=== PATIENT | male | born 1955 | race Caucasian/White ===

== ENCOUNTER 2017-11-11 17:29 | Emergency (ER) | payer BC, OTHER ==
--- NOTE | 2017-11-11 17:48 | ED.PDOC ---
History of Present Illness - General Chief Complaint: Chest Pain/OK Stated Complaint: overheated and chest pain in left side Time Seen by Provider: 11/11/17 17:47 Source: patient Exam Limitations: no limitations - History of Present Illness Initial Comments: Brian Albert 61 y/o male stated that he got dizzy and light headed at work then felt sharp pains on his left lower rib cage which went away on arrival here at ER.Stated had watery diarrhea the last 2 days no vomiting but today stool was soft no longer watery.Exposed to grand kids that were sick with diarrhea.Has history of DMi,copd,htn. Timing/Duration: 4-6 hours Severity: moderate Improving Factors: nothing Worsening Factors: nothing Associated Symptoms: other - see hpi Allergies/Adverse Reactions: Allergies NO KNOWN ALLERGY Allergy (Unverified 11/11/17 17:42) Home Medications: Ambulatory Orders Insulin Aspart [Novolog] 100 unit SC QID PRN #0 10/11/14 Insulin NPH Isophane & Reg (Hu [Novolin 70/30 (70-30) 100 Unit/ml] 1 inj SC Review of Systems - Review of Systems Constitutional: States: no symptoms reported EENTM: States: no symptoms reported Respiratory: States: no symptoms reported Gastrointestinal/Abdominal: States: see HPI Genitourinary: States: no symptoms reported Musculoskeletal: States: no symptoms reported Skin: States: no symptoms reported Neurological: States: other - dizzy Past Medical History (General) - Patient Medical History Hx Seizures: No Hx Stroke: No Hx Dementia: No Hx Asthma: No Hx of COPD: Yes Hx Cardiac Disorders: No Hx Congestive Heart Failure: No Hx Pacemaker: No Hx Hypertension: Yes Hx Thyroid Disease: No Hx Diabetes: Yes Hx Gastroesophageal Reflux: No Hx Renal Disease: No Hx Cancer: No Hx of HIV: No Hx Hepatitis C: No Hx MRSA: No Surgical History: other - thumb ,orif-right knee,groin cyst - Vaccination History Hx Tetanus, Diphtheria Vaccination: No Hx Influenza Vaccination: Yes Hx Pneumococcal Vaccination: Yes Immunizations Up to Date: No - Social History Hx Tobacco Use: Yes Hx Chewing Tobacco Use: Yes - dips Hx Alcohol Use: Yes - occ Hx Substance Use: No Hx Substance Use Treatment: No Hx Depression: No Hx Physical Abuse: No Hx Emotional Abuse: No Family Medical History - Family History Mother Family History: Unknown Hx Family Diabetes: Yes - mom Hx Family Cancer: Yes - pancreas -dad Physical Exam - Physical Exam General Appearance: Alert, Comfortable, No apparent distress Eye Exam: bilateral normal Ears, Nose, Throat: hearing grossly normal, normal ENT inspection, normal pharynx Neck: non-tender, full range of motion, supple Respiratory: chest non-tender, lungs clear, normal breath sounds Cardiovascular/Chest: normal peripheral pulses, regular rate, rhythm, no murmur Peripheral Pulses: radial,right: 2+, radial,left: 2+ Gastrointestinal/Abdominal: normal bowel sounds, non tender, soft, no organomegaly Extremity: non-tender, no pedal edema, no calf tenderness Neurologic: no motor/sensory deficits, alert, oriented x 3, other - speech fluent Skin Exam: normal color, warm/dry Progress - Progress Progress: 11/11/17 19:21 Vital Signs - 8 hr 11/11/17 11/11/17 17:44 17:49 Temperature 97.1 F L Pulse Rate [ 96 H 87 monitor] Respiratory 18 Rate Blood Pressure 124/84 [la] O2 Sat by Pulse 97 Oximetry 11/11/17 21:18 Recommend obs in hospital but feels better wants to go home blood sugar downward trend no N/V stated can drink extra fluids at home;he will give nighttime insulin dose tonight.Denies chest pain symptoms 11/11/17 21:23 - Results/Orders Results/Orders: 11/11/17 18:00 EKG STAT Laboratory Results - last 24 hr 11/11/17 11/11/17 11/11/17 18:03 18:03 18:58 WBC 8.4 RBC 5.18 Hgb 14.7 Hct 44.2 MCV 85.4 MCH 28.3 MCHC 33.2 RDW 13.3 Plt Count 221 MPV 9.7 Absolute Neuts (auto) 6.40 Absolute Lymphs (auto) 1.10 Absolute Monos (auto) 0.70 Absolute Eos (auto) 0.10 Absolute Basos (auto) 0.00 Neutrophils % 76.5 Lymphocytes % 13.7 L Monocytes % 8.6 Eosinophils % 0.7 L Basophils % 0.5 PT 9.3 INR 0.93 PTT (SP) 22.9 D-Dimer, Quantitative 0.31 Sodium 129 L Potassium 3.8 Chloride 93 L Carbon Dioxide 19 L Anion Gap 20.8 H BUN 25 H Creatinine 1.40 H BUN/Creatinine Ratio 17.9 POC Glucose Random Glucose 588 H* Serum Osmolality 290.2 Calcium 9.3 Magnesium 2.0 Total Bilirubin 3.1 H* Direct Bilirubin 0.3 H Indirect Bilirubin 2.8 H AST 23 ALT 25 Alkaline Phosphatase 138 H Creatine Kinase 84 CK-MB (CK-2) 2.7 CK-MB (CK-2) % Not Reportable Troponin I < 0.02 B-Natriuretic Peptide 146.0 H Serum Total Protein 7.2 Albumin 3.9 Urine Color Yellow Urine Appearance Clear Urine pH 5.0 Ur Specific Mobile 1.010 Urine Protein Negative Urine Glucose (UA) 500 H Urine Ketones >=160 Urine Blood Negative Urine Nitrite Negative Urine Bilirubin Negative Urine Urobilinogen 0.2 Ur Leukocyte Esterase Negative Urine RBC 0 Urine WBC 0-1 Ur Epithelial Cells 0 Urine Bacteria 0 11/11/17 11/11/17 11/11/17 19:29 19:42 20:04 WBC RBC Hgb Hct MCV MCH MCHC RDW Plt Count MPV Absolute Neuts (auto) Absolute Lymphs (auto) Absolute Monos (auto) Absolute Eos (auto) Absolute Basos (auto) Neutrophils % Lymphocytes % Monocytes % Eosinophils % Basophils % PT INR PTT (SP) D-Dimer, Quantitative Sodium 138 Potassium 3.8 Chloride 100 L Carbon Dioxide 22 Anion Gap 19.8 H BUN 24 H Creatinine 0.56 L D BUN/Creatinine Ratio 42.9 H POC Glucose 326 H Random Glucose 400 H Serum Osmolality 276.4 Calcium 9.7 Magnesium Total Bilirubin Direct Bilirubin Indirect Bilirubin AST ALT Alkaline Phosphatase Creatine Kinase CK-MB (CK-2) CK-MB (CK-2) % Troponin I < 0.02 B-Natriuretic Peptide Serum Total Protein Albumin Urine Color Urine Appearance Urine pH Ur Specific Mobile Urine Protein Urine Glucose (UA) Urine Ketones Urine Blood Urine Nitrite Urine Bilirubin Urine Urobilinogen Ur Leukocyte Esterase Urine RBC Urine WBC Ur Epithelial Cells Urine Bacteria - EKG/XRAY/CT EKG: Sinus, no ST T wave changes Comments: HR-89 XRAY: chest - subsegmental atelectasis retrocardiac Departure - Departure Clinical Impression: Dizziness, Dehydration, moderate Diarrhea Qualifiers: Diarrhea type: unspecified type Qualified Code(s): R19.7 - Diarrhea, unspecified Diabetes Qualifiers: Diabetes mellitus type: type 1 Diabetes mellitus complication status: with unspecified complications Qualified Code(s): E10.8 - Type 1 diabetes mellitus with unspecified complications Chest pain, unspecified Qualifiers: Chest pain type: unspecified Qualified Code(s): R07.9 - Chest pain, unspecified Time of Disposition: 21:22 Disposition: Discharge to Home or Self Care Condition: Good Departure Forms: ED Discharge - Pt. Copy, Patient Portal Self Enrollment Instructions: DI for Chest Pain, Dehydration, Adult (DC) Diet: other - Drink extra fluids Home Medications: Ambulatory Orders Insulin Aspart [Novolog] 100 unit SC QID PRN #0 10/11/14 Insulin NPH Isophane & Reg (Hu [Novolin 70/30 (70-30) 100 Unit/ml] 1 inj SC Additional Instructions: Return to EMERGENCY ROOM as needed;Follow up with primary Md 12 November 2017 as needed Continue with all home medications
[2017-11-11] MEDS ORDERED: ASPIRIN (CHEWABLE) 81 MG TAB PO ONE (17:49)
--- NOTE | 2017-11-11 18:33 | RAD ---
EXAM DESCRIPTION: Chest,1 View CLINICAL HISTORY: chest pain COMPARISON: Chest radiograph dated March 08, 2011 Findings/impression: Single upright portable frontal view of the chest. Cardiomediastinal silhouette and pulmonary vascularity are within normal limits. Minimal linear opacities in the left retrocardiac region most likely represent subsegmental atelectasis. Underlying infiltrate cannot be excluded, and felt less likely. Please correlate clinically. No pleural effusion. No pneumothorax. No acute osseous abnormality. Electronically signed by: Freddie Rey MD 11/11/2017 6:32 PM CDT
[2017-11-11] MEDS ORDERED: INSULIN, REG.(HUMAN) 100 U/ML VIAL SUBCU ONE (18:39)
[2017-11-11] MEDS ORDERED: SODIUM CHLORIDE 0.9% 1000ML 1,000 ML IVS ONE (18:39)
[2017-11-11] MEDS ORDERED: INSULIN, REG.(HUMAN) 100 U/ML VIAL IV ONE (18:41)
[2017-11-11 21:36] VITALS: BP 133/67; TEMP 97.4; O2SAT 98
== END 2017-11-11 21:36 | disposition home or self-care (01) ==
LOC: ER 17:29
DX: R07.9 Chest pain, unspecified (principal); E86.0 Dehydration; E10.8 Type 1 diabetes mellitus with unspecified complications; R19.7 Diarrhea, unspecified; R42 Dizziness and giddiness; I10 Essential (primary) hypertension; J44.9 Chronic obstructive pulmonary disease, unspecified; F17.220 Nicotine dependence, chewing tobacco, uncomplicated
CPT/HCPCS: 36415; 36416; 71045; 80048; 80076; 81001; 82550; 82553; 82948; 83880; 84484; 85025; 85379; 85610; 85730; 93005; J7030

== ENCOUNTER → 2019-03-28 | Outpatient (CLI) | payer BC ==
--- NOTE | 2019-03-28 14:57 | US ---
EXAM DESCRIPTION: Testicular: Ultrasound. CLINICAL HISTORY: 63 years Male CELLULITIS UNSPEC COMPARISON: None. TECHNIQUE: Transcutaneous scanning ; lynch-scale and Doppler modes. FINDINGS: Dimensions of the right testicle are 3.5 x 1.9 x 4.7 cm, with heterogeneous echogenicity and normal color Doppler flow. Epididymal head measures 13 x 7 x 5 mm, with normal echogenicity and normal color Doppler flow. No scrotal wall thickening. Small Hydrocele. Dimensions of the left testicle are 3.2 cm, with heterogeneous echogenicity and normal color Doppler flow. Epididymal head measures 14 x 4 x 5 mm, with normal echogenicity and normal color Doppler flow. No scrotal wall thickening. Complex tissue consisting of vascular channels and echogenic tissue, abutting the body and tail of the left epididymis. The vascular channels with significant increased color flow during Valsalva. Complex fluid-filled structure in the scrotum hypoechoic with septations and minimal peripheral vascularity measuring 2.6 x 1.6 x 4.8 cm. Minimal fluid in the left inguinal canal. Hypoechoic mass with eccentric echogenic region most likely a lymph node measuring 1.7 x 0.9 x 1.3 cm. Other lymph nodes are present. No fluid or soft tissue or bowel hernia in the upper canal.. Moderate Hydrocele. IMPRESSION: 1. Complex fluid/hypoechoic soft tissue, 4.8 cm long axis, in the lateral left scrotum abutting the epididymis and the inferior left inguinal canal which may represent an abscess. Also varicocele abutting the epididymis and moderate hydronephrosis. 2. Heterogeneous echoes in the bilateral testicles and epididymides but not enlarged and no focal lesions. Small hydrocele right scrotum. Electronically signed by: Chester Martinez MD 03/28/2019 2:51 PM [employer] WORKER
--- NOTE | 2019-03-28 16:11 | RAD ---
EXAM DESCRIPTION: Knee,Right Complete CLINICAL HISTORY: 63 years, Male, PAIN IN RIGHT KNEE COMPARISON: None TECHNIQUE: Three views of the right knee FINDINGS: The knee is normally aligned and mineralized. No fracture or deformity or destructive process is seen. No effusion or mass or foreign body is noted. Mild degenerative changes are evident. IMPRESSION: 1. Normal right knee three views Electronically signed by: Son Gregory MD 03/28/2019 4:09 PM [employer]CH[employer]ER
== END ==
LOC: RAD 13:50
PROVIDERS: ATTEND Nurse Practitioner Family
DX: M25.561 Pain in right knee (principal); L03.90 Cellulitis, unspecified; N43.3 Hydrocele, unspecified